=== PATIENT | female | born 1985 | race Two or more races ===

== ENCOUNTER 2024-11-28 04:36 | Emergency (ER) | payer MEDICAID, SELFPAY ==
[2024-11-28 04:38] VITALS: BMI 27.2
[2024-11-28 04:50] VITALS: BP 118/81; PULSE 82; RESP 18; TEMP 36.7; O2SAT 96
--- NOTE | 2024-11-28 05:09 | PD.EDRME ---
Rapid Medical Screening Exam RME Arrival date/time: 11/28/24 04:36 38-year-old female recently diagnosed with gastritis presents emergency department complaining of sore throat and diffuse abdominal pain for over a week. Chief Complaint: Abdominal Pain Vital signs: Vital Signs Temperature 98.1 F 11/28/24 04:50 Pulse Rate 82 11/28/24 04:50 Respiratory Rate 18 11/28/24 04:50 Blood Pressure 118/81 11/28/24 04:50 Pulse Oximetry (%) 96 11/28/24 04:50 Oxygen Delivery Method Room Air 11/28/24 04:50 Vital signs reviewed by provider: Yes
[2024-11-28] MEDS: LIDOCAINE VISCOUS 2% 15 ML UDC PO (05:12)
[2024-11-28] MEDS: MG HYD/AL HYD/SIME (Maalox Reg) SUSP 30 ML UDC PO (05:12)
[2024-11-28] MEDS: KETOROLAC INJ 60 MG/2 ML VIAL 30 MG IM (05:14)
[2024-11-28 06:01] LABS: Collection Type, Urine Clean Catch
[2024-11-28 06:04] LABS: Bilirubin,Urine Negative (Negative); Blood,Urine 1+ (Negative); Clarity,Urine Clear (Clear/Hazy); Color,Urine Lt-Yellow (Lt Yel-Yel); Culture Indicated,Urine Not Indicated; Glucose, Urine Negative (Negative); Ketones,Urine 1+ (Negative); Leukocyte Esterase,Urine Negative (Negative); Nitrite,Urine Negative (Negative); PH,Urine 5.5 (5.0-7.0); Protein,Urine Negative (Neg - Trace); RBC,Urine 3 /hpf (0-3); Specific Gravity,Urine 1.016 (1.001-1.035); Squamous Epithelial Cell,Urine 3 /hpf (0-5); Urobilinogen,Urine Negative mg/dL (0.0-1.0); WBC,Urine 1 /hpf (0-5)
[2024-11-28 06:11] LABS: Amphetamine/Methamp Scrn,U Negative (Negative); Barbiturate Screen,Urine Negative (Negative); Benzodiazepines Screen,Urine Negative (Negative); Benzoylecgonine Screen, Ur Negative (Negative); Fentanyl Screen,Urine Negative (Negative); Opiate Screen,Urine Negative (Negative); THC Screen,Urine Negative (Negative)
[2024-11-28 06:17] LABS: Basophils % (Auto) 0 % (0-2.5); Eosinophils # (Auto) 0.1 Thou/mm3 (0.0-0.5); Eosinophils % (Auto) 1 % (0-10); Hematocrit 37.2 % (36.0-46.0); Immature Granulocytes % (Auto) 0 % (0-0); Immature Granulocytes Auto 0.01 Thou/mm3 (0.00-0.00); Lymphocytes # (Auto) 1.1 Thou/mm3 (1.0-4.8); Lymphocytes % (Auto) 20 % (10-50); Mean Corpuscular HGB Conc 34.9 g/dl (31.0-37.0); Mean Corpuscular Hemoglobin 31.3 pg (25.0-35.0); Mean Corpuscular Volume 89 fL (80-100); Monocytes # (Auto) 0.4 Thou/mm3 (0.0-0.8); Monocytes % (Auto) 7 % (0-12); Neutrophils # (Auto) 4.2 Thou/mm3 (1.8-7.7); Neutrophils % (Auto) 72 % (37-80); Nucleated Red Blood Cell % 0 /100 WBC (0); Platelet Count 207 Thou/mm3 (140-440); RDW Standard Deviation 39.7 fL (36.4-46.3); Red Blood Count 4.16 Miln/mm3 (4.00-5.20); White Blood Count 5.8 Thou/mm3 (3.6-11.0)
[2024-11-28 06:45] LABS: Alanine Aminotransferase 14 U/L (10-49); Albumin, Serum 4.5 gm/dL (3.5-5.0); Albumin/Globulin Ratio 1.7 (1.2-2.2); Alkaline Phosphatase 73 U/L (46-116); Anion Gap 8 (7-16); Aspartate Amino Transferase 17 U/L (0-34); BUN/Creatinine Ratio 13 Ratio (12-20); Bilirubin,Total 0.7 mg/dL (0.3-1.2); Blood Urea Nitrogen 9 mg/dL (9-23); Calcium 9.4 mg/dL (8.3-10.6); Calcium (Corrected) 9.4 mg/dL (8.5-10.1); Carbon Dioxide 27.2 mMol/L (20.0-31.0); Chloride 106 mMol/L (98-107); Creatinine (Component) 0.7 mg/dL (0.6-1.3); Estimated Creatinine Clearance 87.6 mL/min (>60); Globulin 2.6 gm/dL (2.3-3.5); Glucose 93 mg/dL (74-106); Lipase 37 U/L (12-53); Osmolality,Calculated 279 (275-295); Potassium 3.9 mMol/L (3.4-5.1); Sodium 141 mMol/L (136-145); Total Protein 7.1 gm/dL (5.7-8.2); eGFR > 60 See Note
--- NOTE | 2024-11-28 07:16 | EDNOTE_ITS ---
ED Abdominal Pain RME/HPI General Chief Complaint: Abdominal Pain Stated complaint: Sore throat and Abd Pain Time seen by provider: 11/28/24 06:28 Arrival date/time: 11/28/24 04:36 38-year-old female with a history of gastritis presents to the emergency room with a chief complaint of a sore throat and generalized abdominal pain x 1 week Source: patient Mode of arrival: ambulatory Limitations: no limitations RME / HPI RME / HPI narrative: 11/28/24 04:36 38-year-old female recently diagnosed with gastritis presents emergency department complaining of sore throat and diffuse abdominal pain for over a week. Related Data Home Medications ?Medication ?Instructions ?Recorded ?Confirmed ondansetron HCl 8 mg tablet 8 mg PO Q8H 01/22/2301/22 Previous Rx's ?Medication ?Instructions ?Recorded medroxyprogesterone 10 mg tablet 10 mg PO QDAY #7 tabs 07/11/23 (Provera) hydrocodone 5 mg-acetaminophen 325 1 tab PO Q6H PRN pa in #7 tabs 07/16/23 mg tablet omeprazole 40 mg capsule,delayed 40 mg PO QDAY #14 cap s 11/28/24 release Allergies Allergy/AdvReac Type Severity Reaction Status Date / Time No Known Allergies Allergy Verified 07/16/23 00:36 Review of Systems Review of Systems Systems Reviewed: All systems reviewed, normal except as documented Constitutional Constitutional: Reports system reviewed and no additional complaints, except as documented, Denies fatigue, Denies fever(s), Denies headache(s) and Denies weakness Eyes Eyes: Reports system reviewed and no additional complaints, except as documented, Denies blurry vision and Denies change in vision ENT Ears, Nose, Mouth, and Throat: Reports system reviewed and no additional complaints, except as documented, Denies otalgia, Denies headache(s), Denies nasal congestion, Reports sore throat, Denies throat swelling and Denies vertigo Cardiovascular Cardiovascular: Reports system reviewed and no additional complaints, except as documented, Denies chest pain, Denies dyspnea and Denies dyspnea on exertion Respiratory Respiratory: Reports system reviewed and no additional complaints, except as documented, Denies chest congestion, Denies cough, Denies dyspnea, Denies dyspnea on exertion and Denies wheezing Gastrointestinal Gastrointestinal: Reports system reviewed and no additional complaints, except as documented, Reports abdominal pain, Reports cramping, Reports dyspepsia, Denies nausea and Denies vomiting Genitourinary Genitourinary: Reports system reviewed and no additional complaints, except as documented Musculoskeletal Musculoskeletal: Reports system reviewed and no additional complaints, except as documented and Denies back pain Integumentary/Breasts Skin/Breast: Reports system reviewed and no additional complaints, except as documented and Denies wounds Neurologic Neurologic: Reports system reviewed and no additional complaints, except as documented, Denies confusion, Denies headache(s), Denies lack of coordination, Denies vertigo and Denies weakness Psychiatric Psychiatric: Reports system reviewed and no additional complaints, except as documented, Denies anxiety, Denies confusion, Denies depression, Denies paranoia, Denies suicidal ideation and Denies tactile hallucinations Endocrine Endocrine: Reports system reviewed and no additional complaints, except as documented and Denies fatigue Hematologic/Lymphatic Hematologic/Lymphatic: Reports system reviewed and no additional complaints, except as documented and Denies lymphadenopathy Allergic/Immunologic Allergic/Immunologic: Reports system reviewed and no additional complaints, except as documented, Denies throat swelling, Denies urticaria and Denies wheezing Past Medical History Past Medical History NEUROLOGIC: Negative Neurological Disorders CARDIAC: Negative Cardiac Disorders or Congestive Heart Failure RESPIRATORY: Negative Chronic Obstructive Pulmonary Disease (COPD) GASTROINTESTINAL: Negative Gastrointestinal Disorders GENITOURINARY: Positive Kidney Stones; Negative Genitourinary Disorders or Renal Disease REPRODUCTIVE: Negative Pelvic Inflammatory Disease MUSCULOSKELETAL: Negative Musculoskeletal Disorders ENDOCRINE: Negative Endocrine Disorders, Diabetes Mellitus Type 1 or Diabetes Mellitus Type 2 HEMATOLOGIC: Negative Blood Disorders Surgical History SURGICAL: Negative Cardiac Surgery, Endocrine Surgery, Ear Surgery or Abdominal Surgery Social History SMOKING STATUS: Never smoker SUBSTANCE USE: does not use ED Exam General Limitations: Present no limitations General appearance: Present alert and in no apparent distress Head Head exam: Present atraumatic Eye Eye exam: Present normal appearance, PERRL and EOMI ENT ENT exam: Present normal exam, normal oropharynx and mucous membranes moist Neck Neck exam: Present normal inspection, full ROM and trachea midline Chest Chest inspection: Present normal inspection and symmetric chest wall rise Respiratory Respiratory exam: Present normal lung sounds bilaterally Cardiovascular Cardiovascular exam: Present regular rate, normal rhythm and normal heart sounds Abdominal Exam Abdominal exam: Present soft, tenderness and normal bowel sounds Abdominal tenderness: Present RUQ, RLQ, LUQ, LLQ, diffuse and mild Extremities Exam Extremities exam: Present normal inspection and full ROM Back Exam Back exam: Present normal inspection and full ROM Neurological Exam Neurological exam: Present alert, oriented X3 and CN II-XII intact Psychiatric Psychiatric exam: Present normal affect and normal mood Skin Skin exam: Present warm, dry, intact and normal color Course Quality Measures none Orders Category Date Time Status CBC Stat Lab 11/28/24 06:11 Completed CMP [Comprehensive Metabolic Panel] Stat Lab 11/28/24 06:11 Completed Drug Screen,Urine Stat Lab 11/28/24 05:47 Completed HCG,Qualitative Serum Stat Lab 11/28/24 06:11 Completed Lipase Stat Lab 11/28/24 06:11 Completed Strep A Rapid Stat Lab 11/28/24 05:08 Ordered Urinalysis, C/S if Indicated Stat Lab 11/28/24 05:47 Completed Ketorolac Inj [Toradol Inj] Med 11/28/24 05:09 Discontinued 30 mg IM X1 ONE Lidocaine 2% Viscous [Xylocaine 2% Viscous] Med 11/28/24 05:08 Discontinued 15 ml PO X1 ONE mg Hyd/Al Hyd/Xavi Susp [Maalox Susp] Med 11/28/24 05:08 Discontinued 30 ml PO X1 ONE Vital Signs Vital signs: Vital Signs Temperature 98.1 F 11/28/24 04:50 Pulse Rate 82 11/28/24 04:50 Respiratory Rate 18 11/28/24 04:50 Blood Pressure 118/81 11/28/24 04:50 Pulse Oximetry (%) 96 11/28/24 04:50 Oxygen Delivery Method Room Air 11/28/24 04:50 O2 saturation 96% within normal limits Abdominal Pain MDM MDM Narrative MDM Narrative:: 38-year-old female with a history of gastritis presents to the emergency room with a chief complaint of a sore throat and generalized abdominal pain x 1 week Patient is hemodynamically stable and in no apparent distress Physical examination shows mild generalized diffuse abdominal tenderness. Patient states his symptoms have been going on for 1 week. CBC CMP were negative for any leukocytosis. Patient states the medication that was given to her initially has improved her symptoms. Patient was discharged and educated to follow-up with primary care provider and return to the emergency room for any evidence of worsening signs or symptoms Patient data External records reviewed:: [facility] previous records Clinical information provided by:: patient Social determinants that could affect healthcare access:: none Patient has the following chronic illnesses:: No chronic illness How is presenting disease/condition affected by chronic disease/condition?: no chronic disease Evaluation data The following diagnostics were reviewed and interpreted by me:: lab results and radiology exam(s) Lab and/or radiology exams considered but not ordered:: Labs and radiology exams considered and ordered Interpretation Summary: N/A Medications / Prescriptions Medications or Prescriptions considered but not ordered:: Medication given Medication administrations:: Medication Administration History Discontinued Medications Al Hydrox/Mg Hydrox/Simethicone (Mg Hyd/Al Hyd/Xavi (Maalox Reg) Susp 30 Ml Udc) 30 ml PO X1 ONE Stop: 11/28/24 05:09 Last Admin: 11/28/24 05:12 Dose: 30 ml Documented By: TC Ketorolac Tromethamine (Ketorolac Inj 60 Mg/2 Ml Vial) 30 mg IM X1 ONE Stop: 11/28/24 05:10 Last Admin: 11/28/24 05:14 Dose: 30 mg Documented By: TC Lidocaine HCl (Lidocaine Viscous 2% 15 Ml Udc) 15 ml PO X1 ONE Stop: 11/28/24 05:09 Last Admin: 11/28/24 05:12 Dose: 15 ml Documented By: TC Medication given Consultations Consultation(s) initiated? (list below): No Diagnosis Differential diagnosis abdominal pain: abdominal pain, diverticulitis, gastroent eritis and other (Gastritis/pharyngitis) Most likely diagnosis given after review of the tests above:: Gastritis Admission Indicated Admission indicated?: not indicated Admission Request Was there a request for admission?: No Disposition Plan Disposition Plan: Discharge Discharge Attestation Discharge Attestation: The patient and all family members were given an opportunity to ask questions and understood the discharge instructions. Discharge instructions specifically effects, indications for sooner follow up or return to the emergency department, and the expected course of current diagnosis. Patient condition: Stable Discharge Plan Plan Patient Disposition: HOME (Self Care) Disposition Comment: Stable Prescriptions/Referrals Prescriptions/Med Rec: New omeprazole 40 mg capsule,delayed release(DR/EC) 40 mg PO QDAY Qty: 14 0RF No Action ondansetron HCl 8 mg tablet 8 mg PO Q8H medroxyprogesterone [Provera] 10 mg tablet 10 mg PO QDAY Qty: 7 0RF hydrocodone-acetaminophen 5-325 mg tablet 1 tab PO Q6H MDD 3 PRN (Reason: pain) Qty: 7 0RF Referrals: Katy Oliveira MD [Primary Care Provider] - In 1 week Problem List Clinical Impression: Gastritis Patient/Caregiver Discharge Instructions Education Materials: Treating Gastritis, Understanding Gastritis, ED Gastritis (Adult) Additional Instructions: Por favor, consulte con lei m?dico de cabecera en las pr?ximas 24 a 48 horas. Se envi? el medicamento a lei farmacia, rec?jalo y t?mckeon seg?n lo indicado. Si hay evidencia de empeoramiento de los signos o s?ntomas, regrese a la ashish de emergencias de inmediato. Print Language: Albanian Stand Alone Forms: Aleyda Award Info., Patient Portal Info Letter PA/TELETYPE ADJUSTER Supervising Physician CRYSTAL/TANIKA Supervising Physician: Dr Taylor
[2024-11-28 07:26] LABS: HCG,Qualitative Serum Negative
[2024-11-28 07:44] VITALS: BP 128/81; PULSE 68; RESP 18; TEMP 37; O2SAT 98
== END 2024-11-28 07:46 | disposition home or self-care (01) ==
PROVIDERS: Emergency Provider Emergency Medicine; PCP Obstetrics & Gynecology
DX: K29.70 Gastritis, unspecified, without bleeding (principal); Z87.19 Personal history of other diseases of the digestive system
CPT/HCPCS: 36415; 80053; 80307; 81001; 83690; 84703; 85025; 87651; 96372; 99283; J1885; J3490; A9270

== ENCOUNTER → 2025-08-17 | Outpatient (CLI) | payer MEDICAID, SELFPAY ==
[2025-08-16 13:39] LABS: HCG Qualitative,Urine Negative
--- NOTE | 2025-08-17 10:30 | XR_ITS ---
Examination: CT abdomen, without intravenous contrast. CT pelvis, without intravenous contrast. CT abdomen, with intravenous contrast. CT pelvis, with intravenous contrast. 2-D sagittal coronal reconstructions. Date and time of exam: August 17, 2025, 1212 hours INDICATIONS: Onset right lower abdominal pain this week CTDI: vol (mGy) 25.5 DLP: (mGycm) 1058 Technique: Multiple 3.0 axial images of the abdomen and pelvis without intravenous contrast, 3.0 mm slice thickness. Multiple 3.0 postcontrast images abdomen and pelvis also obtained, post intravenous injection 60 cc Isovue 370 2-D sagittal and coronal reconstructions. Low dose protocols were performed. One or more of the following dose reduction techniques were used; automated exposure control, adjustment of the mA and/or KV according to patient size, use of iterative reconstruction technique. Findings: No focal liver or splenic lesions No definite gallstones No pancreatic or adrenal mass No renal or ureteral calculi, no hydronephrosis Aorta normal size Normal appendix Scattered colonic diverticulosis Prominent right ovary 4 cm Anteverted uterus with mildly enlarged fundus Contracted urinary bladder Intact osseous structures IMPRESSION: No renal or ureteral calculi, no hydronephrosis Normal appendix Prominent right ovary and enlarged fundus of the uterus, recommend pelvic sonography follow-up
== END | disposition home or self-care (01) ==
LOC: SCAT 10:13
DX: N85.2 Hypertrophy of uterus (principal); Z32.00 Encounter for pregnancy test, result unknown
CPT/HCPCS: 74178; 81025; A4649; Q9967